=== PATIENT | male | born 1965 | race Caucasian/White ===

== ENCOUNTER → 2017-05-16 | Outpatient (CLI) | payer OTHER ==
[~2017-05-16] MED LIST: AMOX-559 PO; ASPI1TAB35 PO; BUPR-472 PO; CPAP MC; CYCL10TA29 PO; DIA5 PO; DIAZ-308 PO; DULO30CA6 PO; DULO60CA7 PO; EPIN0.3P15 IM; ESCI10TA8 PO; FLUT16SP19 NS; HYDR-385 PO; IBUP800T37 PO; METH4TAB66 PO; NABU-95 PO; OMEP-125 PO; OMEP40CA48 PO; ROSU10TA13 PO; SIMV-49 PO; SIMV-54 PO; TERB250T63 PO; [UNRECOGNIZED DRUG - CODE] MC
--- NOTE | 2017-05-16 17:04 | RADIOLOGY IMAGING REPORT ---
FACILITY: [facility] PATIENT NAME: Noel Mike : 1965 MR: [id number] V: [id number] EXAM DATE: ORDERING PHYSICIAN: ORTIZ FRANK TECHNOLOGIST: Location: [facility] Patient: Noel Mike : 1965 Visit/Account:[id number] Date of Sevice: 05/16/2017 Exam type: WRIST RIGHT MIN 3 VIEW History: Lateral Right wrist pain, no known injury x2 weeks Comparison: None. Findings: Cystic changes are seen in the navicular bone and lunate bone. There is no evidence of acute fractur e involving the right wrist. There are mild degenerative changes involving the first carpometacarpal articulation. No radiopaque soft tissue foreign body seen. No aggressive appearing bone lesions ar e identified. IMPRESSION: 1. Mild degenerative changes involving the first carpometacarpal articulation Cystic changes in the navicular bone and lunate bone Report Dictated By: Santa Mark MD at 05/16/2017 4:57 PM Report E-Signed By: Santa Mark MD at 05/16/2017 4:59 PM WSN:[email or web address]
== END ==
LOC: RAD 16:21
PROVIDERS: ATTEND Nurse Practitioner Primary Care
DX: M19.031 Primary osteoarthritis, right wrist (principal)

== ENCOUNTER → 2017-06-20 | Outpatient (CLI) | payer OTHER ==
--- NOTE | 2017-06-20 17:00 | RADIOLOGY IMAGING REPORT ---
FACILITY: [facility] PATIENT NAME: Noel Mike : 1965 MR: [id number] V: [id number] EXAM DATE: ORDERING PHYSICIAN: KRISTIAN DURAND TECHNOLOGIST: Location: [facility] Patient: Noel Mike : 1965 Visit/Account:[id number] Date of Sevice: 06/20/2017 KNEE RIGHT W/O CONTRAST HISTORY: pain COMPARISON: None TECHNIQUE: Multiplanar/multisequence was obtained through the right knee without contrast. Contrast: None FINDINGS: ACL: Intact with a normal contour through the intracondylar notch. PCL: Normal MCL: Normal LCL: Fibular collateral ligament, biceps femoris tendon and popliteus tendons are intact. Iliotibial band is normal. Medial joint space: Peripheral high signal at the junction of the posterior horn-body the medial meni scus without discrete tear. Mild thinning of the weightbearing portion of the femoral articular carti ronda without defect. Lateral joint space: No lateral meniscal tear. Articular cartilage is normal. Joint effusion: None significant Popliteal cyst: None significant Bone marrow: Normal Quadriceps and patellar tendons: Mild high signal within the medial aspect of the patellar tendon at its origin without significant tear Patellofemoral joint: Mild heterogeneity of the patellar articular cartilage at the apex with mild he terogeneity and fraying of the articular cartilage at the medial patellar facet. Trochlear cartilage is intact. The retinaculum are intact. No patellar subluxation. Soft tissues: Normal Other findings: None significant IMPRESSION: 1. Negative examination for meniscal tear or ligamentous injury. 2. Mild chondral malacia patella. 3. Mild patellar tendinosis. Report Dictated By: Sree Padron MD at 06/20/2017 4:42 PM Report E-Signed By: Sree Padron MD at 06/20/2017 4:56 PM WSN:[email or web address]
--- NOTE | 2017-06-20 17:04 | RADIOLOGY IMAGING REPORT ---
FACILITY: [facility] PATIENT NAME: Noel Mike : 1965 MR: [id number] V: [id number] EXAM DATE: ORDERING PHYSICIAN: KRISTIAN DURAND TECHNOLOGIST: Location: [facility] [place] Patient: Noel Mike : 1965 Visit/Account:[id number] Date of Sevice: 06/20/2017 KNEE LEFT W/O CONTRAST HISTORY: pain COMPARISON: None TECHNIQUE: Multiplanar/multisequence was obtained through the left knee without contrast. Contrast: None FINDINGS: ACL: Intact with a normal contour through the intracondylar notch. PCL: Normal MCL: Normal LCL: Fibular collateral ligament, biceps femoris tendon and popliteus tendons are intact. Iliotibial band is normal. Medial joint space: Mild intrasubstance high signal at the junction of the posterior horn-body withou t discrete tear. Without heterogeneity of the femoral articular cartilage at the weightbearing surfac e without defect. Lateral joint space: No lateral meniscal tear. Articular cartilage is normal. Joint effusion: None significant Popliteal cyst: None significant Bone marrow: Normal Quadriceps and patellar tendons: Normal Patellofemoral joint: Mild heterogeneous high signal with fraying of the patellar articular cartilage at the apex and medial facet. Mild fissuring and irregularity of the central trochlear cartilage. Th e retinaculum are intact. No patellar subluxation. Soft tissues: Normal Other findings: None significant IMPRESSION: 1. Negative for meniscal tear or ligamentous injury. 2. Mild chondromalacia both sides of the patellofemoral joint. Report Dictated By: Sree Padron MD at 06/20/2017 4:57 PM Report E-Signed By: Sree Padron MD at 06/20/2017 5:00 PM WSN:[email or web address]
== END ==
LOC: MRI 01:49
PROVIDERS: ATTEND Nurse Practitioner Family
DX: M76.50 Patellar tendinitis, unspecified knee (principal); M83.9 Adult osteomalacia, unspecified

== ENCOUNTER → 2017-06-20 | Outpatient (CLI) | payer OTHER ==
[2017-06-20 17:44] LABS: PLATELET COUNT, AUTOMATED 249 K/uL (150-450)
[2017-06-20 18:17] LABS: LDL CHOLESTEROL 97 mg/dl
== END ==
LOC: LAB 16:47
PROVIDERS: ATTEND Nurse Practitioner Primary Care
DX: E03.9 Hypothyroidism, unspecified (principal); F41.9 Anxiety disorder, unspecified; R41.840 Attention and concentration deficit; R61 Generalized hyperhidrosis; N64.4 Mastodynia
CPT/HCPCS: 36415; 82040; 82247; 82310; 82374; 82435; 82465; 82565; 82670; 82947; 83002; 83718; 84075; 84132; 84155; 84295; 84403; 84439; 84443; 84450; 84460; 84478; 84480; 84520; 84702; 85025

== ENCOUNTER → 2017-06-24 | Outpatient (CLI) | payer OTHER ==
--- NOTE | 2017-06-24 15:48 | RADIOLOGY IMAGING REPORT ---
[facility] PATIENT NAME: HEATHER KHOURY : [id number] MR: [id number] V: [id number] EXAM DATE: [id number] ORDERING PHYSICIAN: ORTIZ FRANK TECHNOLOGIST: Sue Ruiz PROCEDURE:BILATERAL DIAGNOSTIC DIGITAL MAMMOGRAM WITH CAD ASSISTED INTERPRETATION & 3D TOMOSYNTHESIS COMPARISON:None. INDICATIONS:R breast pain and R retroareolar breast mass FINDINGS: There is prominent fatty replacement throughout the breasts. There is a slight increase density of the breast tissue in the Right retroareolar region relative to the Left. No malignant appearing calcifications are identified in either breast. Today's Right breast Ultrasound did reveal a slight increase in the Right retroareolar breast tissue relative to the Left likely representing unilateral gynecomastia. Clinical follow-up recommended for patient's findings. DIAGNOSTIC CATEGORY 2--BENIGN FINDING. RECOMMENDATIONS: CLINICAL EVALUATION. IMPRESSION: BIRADS 2: Benign finding Patient's findings are likely related to unilateral gynecomastia. Clinical follow-up recommended. Dictated by: Santa Mark M.D. on 06/24/2017 at 15:25 Transcribed by: MARYLIN on 06/24/2017 at 15:45 Approved by: Santa Mark M.D. on 06/24/2017 at 15:47 [facility]
== END ==
LOC: MAMO 03:22
PROVIDERS: ATTEND Nurse Practitioner Primary Care
DX: N62 Hypertrophy of breast (principal)
CPT/HCPCS: 77062; 77066

== ENCOUNTER → 2017-07-01 | Outpatient (CLI) | payer OTHER ==
[~2017-07-01] MED LIST changes: +AMIT-106 PO
== END ==
LOC: LAB 09:13
PROVIDERS: ATTEND Nurse Practitioner Primary Care
DX: N64.4 Mastodynia (principal)
CPT/HCPCS: 36415; 84403

== ENCOUNTER 2017-07-22 11:26 | Emergency (ER) | payer OTHER ==
--- NOTE | 2017-07-22 11:28 | ER Report ---
History and Physical Time Seen By : 11:28 HPI/ROS CHIEF COMPLAINT: Medical fall HISTORY OF PRESENT ILLNESS: 51-year-old male who was performing physical therapy at home doing inverted pull-ups when the string broke and he fell onto his upper back and neck and hit the back of his head. There is no loss of consciousness there is some mild nausea patient is complaining of left shoulder pain and neck pain and upper back pain. REVIEW OF SYSTEMS: Constitutional: No fever, no chills. Eyes: No discharge. ENT: No sore throat. Cardiovascular: No chest pain, no palpitations. Respiratory: No cough, no shortness of breath. Gastrointestinal: No abdominal pain, no vomiting. Genitourinary: No hematuria. Musculoskeletal: Neck and thoracic back pain, left shoulder pain Skin: No rashes. Neurological: No headache. Allergies: Coded Allergies: oxycodone (Unverified Adverse Reaction, Severe, DIZZINESS, 07/22/17) "weird feeling" FEELING THOUGH HE WILL FAINT. Uncoded Allergies: ALLERGY TESTING (Allergy, Severe, ANAPHYLAXIS, 10/02/14) Home Meds Active Scripts Hydrocodone Bit/Acetaminophen (HYDROCODON-ACETAMINOPHEN 5-325) 1 Each Tablet, 1 EACH PO Q4-6H for PAIN, #12 TAB 0 Refills Prov:AUTUMN NEVAREZ MD 07/22/17 Rosuvastatin Calcium (Rosuvastatin Calcium) 10 Mg Tablet, 1 TAB PO QHS, #90 TAB 1 Refill Prov:KRISTIAN DURAND APRN 07/11/17 Amitriptyline Hcl (AMITRIPTYLINE HCL) 25 Mg Tablet, 1 TAB PO QHS, #30 TAB 0 Refills Prov:KRISTIAN DURAND APRN-C 07/05/17 Omeprazole (OMEPRAZOLE) 20 Mg Capsule.dr, 1 TAB PO DAILY, #90 CAP 3 Refills Prov:KRISTIAN DURAND APRN 05/10/17 Cyclobenzaprine Hcl (CYCLOBENZAPRINE HCL) 10 Mg Tablet, 1 TAB PO QHS Y for tension ELL[place], #90 TAB 3 Refills Prov:KRISTIAN DURAND APRN 05/10/17 Epinephrine (EPIPEN 2-AUTUMN) 0.3 Mg/0.3 Ml Pen.injctr, 0.3 MG IM ONCE for anaphylaxis, #1 PACK Prov:KRISTIAN DURAND TALHA LAMAS-C 12/24/16 Cpap (CPAP HOME) Inha, EACH , #1 0 Refills Prov:KRISTIAN DURAND V [employer] DRY CLEANER PRESSER-C 09/14/16 Reported Medications Gabapentin (GABAPENTIN) 300 Mg Capsule, QDAY 07/22/17 Aspirin (ASPIRIN) 81 Mg Tab.chew, 81 MG PO QDAY, TAB.CHEW 07/22/17 Past Medical/Surgical History History of prior "mini strokes" history of left shoulder surgery Hx Smoking: No Smoking Status: Never Smoker Exposure to Second Hand Smoke?: No Hx Alcohol Use: Yes Constitutional Physical Exam General/Constitutional: Patient is awake, alert, nontoxic and in no acute respiratory distress. Head: Normocephalic and atraumatic. Eyes: Conjunctival clear, Pupils are equal and reactive to light. Extraocular muscles are intact and symmetrical. Sclera are clear and anicteric. Sharp discs bilaterally Ears:External canals are clear. Tympanic membranes are clear with normal landmarks and light reflex. Nares: No rhinorrhea or bleeding. Turbinates are pink and moist. Oropharyngeal: Mucous membranes are moist. There is no pharyngeal erythema or exudate. There are no palatal petechiae. Uvula is midline and symmetrical. Neck: Tenderness along bilateral lateral aspects of the cervical spine with no midline tenderness. Cardiovascular: Heart is regular rate and rhythm without audible murmurs, rubs or gallops. Pulmonary: Lungs are clear to auscultation bilaterally. There are no wheezes, rales, or rhonchi. Chest rise is symmetrical Abdomen: Soft, nontender, no guarding or peritoneal signs. Extremities: No gross deformities, left shoulder pain without obvious deformity ; thoracic back pain paraspinal no midline tenderness Neuro: Alert and oriented X3, Cranial nerves 2 thru 12 are intact and symmetrical. Patient has normal gait. Skin: No rashes, skin is warm dry and well perfused. Medical Decision Making EKG/Imaging Imaging FACILITY: PATIENT NAME: Noel Mike : 1965 MR: [id number] V: [id number] EXAM DATE: ORDERING PHYSICIAN: AUTUMN NEVAREZ TECHNOLOGIST: Location: [facility] Patient: Noel Mike : 1965 Visit/Account:[id number] Date of Sevice: 07/22/2017 EXAMINATION: Brain MRI without IV contrast History: History of infarcts COMPARISON STUDIES: none TECHNIQUE: Multi-planar, multi-sequence brain MRI was performed without IV contrast administration. FINDINGS: Paranasal sinuses / mastoid air cells: negative White matter: A few punctate foci of FLAIR signal hyperintensity nonspecific and within range of normal for age. Ventricles / sulci / fissures: negative Masses / hemorrhage / midline shift: negative Extra-axial spaces: negative Calvarium and scalp: negative Vascular structures: negative Sagittal midline structures: negative Orbits: negative Visualized upper neck: negative IMPRESSION: Normal MRI of the brain for the patient's age. No evidence of a mass, acute ischemia or hemorrhage. Report Dictated By: Kenton Heredia MD at 07/22/2017 12:43 PM Report E-Signed By: Kenton Heredia MD at 07/22/2017 12:50 PM WSN:[id number] FACILITY: PATIENT NAME: Noel Mike : 1965 MR: [id number] V: [id number] EXAM DATE: [id number] ORDERING PHYSICIAN: AUTUMN NEVAREZ TECHNOLOGIST: Location: [facility] Patient: Noel Mike : 1965 Visit/Account:[id number] Date of Sevice: 07/22/2017 3 views cervical spine Indication: Pain. Comparison: None available. Findings: The prevertebral soft tissues are within normal limits. The odontoid is unremarkable. The vertebral body heights are well maintained. Mild degenerative disc disease at C4-C5 and C5-C6. Normal lordosis of the cervical spine. IMPRESSION: 1. No acute osseous or acute alignment abnormality of the cervical spine on this examination. Report Dictated By: Joao Mancilla MD at 07/22/2017 1:35 PM Report E-Signed By: Joao Mancilla MD at 07/22/2017 1:36 PM WSN:[email or web address] FACILITY: PATIENT NAME: Noel Mike : 1965 MR: [id number] V: [id number] EXAM DATE: [id number] ORDERING PHYSICIAN: AUTUMN NEVAREZ TECHNOLOGIST: Location: [facility] Patient: Noel Mike : 1965 Visit/Account:[id number] Date of Sevice: 07/22/2017 2 views left shoulder Indication: Fall Comparison: Unavailable Findings: There is no acute fracture-dislocation of the left glenohumeral joint. Limited views of the left upper lung zone are unremarkable. Visualized left acromioclavicular joint is unremarkable. IMPRESSION: 1. No acute osseous abnormality left shoulder. Report Dictated By: Joao Mancilla MD at 07/22/2017 1:32 PM Report E-Signed By: Joao Mancilla MD at 07/22/2017 1:33 PM WSN:[email or web address] FACILITY: PATIENT NAME: Noel Mike : 1965 MR: [id number] V: [id number] EXAM DATE: [id number] ORDERING PHYSICIAN: AUTUMN NEVAREZ TECHNOLOGIST: Location: [facility] Patient: Noel Mike : 1965 Visit/Account:[id number] Date of Sevice: 07/22/2017 3 views thoracic spine INDICATION: Fall COMPARISON: None available FINDINGS: The vertebral body heights and disc spaces are well maintained. There is no acute osseous or acute alignment abnormality. Minimal degenerative changes throughout the thoracic spine. IMPRESSION: 1. No acute osseous or acute alignment abnormality of the thoracic spine. Report Dictated By: Joao Mancilla MD at 07/22/2017 1:31 PM Report E-Signed By: Joao Mancilla MD at 07/22/2017 1:32 PM WSN:[email or web address] ED Course/Re-evaluation ED Course X-ray of cervical spine and left shoulder thoracic spine MRI of the brain all normal. We'll discharge patient home with short course of pain medication. Decision to Disposition Date: Jul 22, 2017 Decision to Disposition Time: 13:58 Depart Departure Latest Vital Signs Impression: Primary Impression: Neck sprain Additional Impressions: Left shoulder pain Back pain Condition: Improved Disposition: HOME OR SELF-CARE Referrals: ORTIZ FRANK DNP, DRY CLEANER PRESSER-BC (PCP) 2 Days if symptoms persist New Scripts Hydrocodone Bit/Acetaminophen (HYDROCODON-ACETAMINOPHEN 5-325) 1 Each Tablet 1 EACH PO Q4-6H for PAIN, #12 TAB 0 Refills Prov: AUTUMN NEVAREZ MD 07/22/17 Patient Instructions: Back Pain (ED), Cervical Sprain (ED), Shoulder Pain (ED) Problem Qualifiers Primary Impression: Neck sprain Encounter type: initial encounter Qualified Codes: S13.9XXA - Sprain of joints and ligaments of unspecified parts of neck, initial encounter Additional Impressions: Left shoulder pain Chronicity: acute Qualified Codes: M25.512 - Pain in left shoulder Back pain Back pain location: thoracic back pain Chronicity: acute Back pain laterality: unspecified Qualified Codes: M54.6 - Pain in thoracic spine AUTUMN NEVAREZ MD Jul 22, 2017 11:28
[2017-07-22] MEDS ORDERED: GABA-549 (11:32)
[2017-07-22] MEDS ORDERED: ASPI81TA94 PO (11:32)
[2017-07-22] MEDS ORDERED: APAP/HYDROCODONE 325/5 TAB PO ONE (11:55)
--- NOTE | 2017-07-22 12:53 | RADIOLOGY IMAGING REPORT ---
FACILITY: [facility] [place] PATIENT NAME: Noel Mike : 1965 MR: [id number] V: [id number] EXAM DATE: ORDERING PHYSICIAN: AUTUMN NEVAREZ TECHNOLOGIST: Location: [facility] Patient: Noel Mike : 1965 Visit/Account:[id number] Date of Sevice: 07/22/2017 EXAMINATION: Brain MRI without IV contrast History: History of infarcts COMPARISON STUDIES: none TECHNIQUE: Multi-planar, multi-sequence brain MRI was performed without IV contrast administration. FINDINGS: Paranasal sinuses / mastoid air cells: negative White matter: A few punctate foci of FLAIR signal hyperintensity nonspecific and within range of norm al for age. Ventricles / sulci / fissures: negative Masses / hemorrhage / midline shift: negative Extra-axial spaces: negative Calvarium and scalp: negative Vascular structures: negative Sagittal midline structures: negative Orbits: negative Visualized upper neck: negative IMPRESSION: Normal MRI of the brain for the patient's age. No evidence of a mass, acute ischemia or hemorrhage. Report Dictated By: Kenton Heredia MD at 07/22/2017 12:43 PM Report E-Signed By: Kenton Heredia MD at 07/22/2017 12:50 PM WSN:[id number]
--- NOTE | 2017-07-22 13:36 | RADIOLOGY IMAGING REPORT ---
FACILITY: [facility] [place] PATIENT NAME: Noel Mike : 1965 MR: [id number] V: [id number] EXAM DATE: ORDERING PHYSICIAN: AUTUMN NEVAREZ TECHNOLOGIST: [place] [facility] [place] Noel [place] : 1965 Visit/Account:[id number] Date of Sevice: 07/22/2017 3 views thoracic spine INDICATION: Fall COMPARISON: None available FINDINGS: The vertebral body heights and disc spaces are well maintained. There is no acute osseous or acute alignment abnormality. Minimal degenerative changes throughout the thoracic spine. IMPRESSION: 1. No acute osseous or acute alignment abnormality of the thoracic spine. Report Dictated By: Joao Mancilla MD at 07/22/2017 1:31 PM Report E-Signed By: Joao Mancilla MD at 07/22/2017 1:32 PM WSN:[email or web address]
--- NOTE | 2017-07-22 13:36 | RADIOLOGY IMAGING REPORT ---
FACILITY: [facility] [place] PATIENT NAME: Noel Mike : 1965 MR: [id number] V: [id number] EXAM DATE: ORDERING PHYSICIAN: AUTUMN NEVAREZ TECHNOLOGIST: Location: [facility] [place] Patient: Noel Mike : 1965 Visit/Account:[id number] Date of Sevice: 07/22/2017 2 views left shoulder Indication: Fall Comparison: Unavailable Findings: There is no acute fracture-dislocation of the left glenohumeral joint. Limited views of the left upper lung zone are unremarkable. Visualized left acromioclavicular joint is unremarkable. IMPRESSION: 1. No acute osseous abnormality left shoulder. Report Dictated By: Joao Mancilla MD at 07/22/2017 1:32 PM Report E-Signed By: Joao Mancilla MD at 07/22/2017 1:33 PM WSN:[email or web address]
--- NOTE | 2017-07-22 13:40 | RADIOLOGY IMAGING REPORT ---
FACILITY: [facility] PATIENT NAME: Noel Mike : 1965 MR: [id number] V: [id number] EXAM DATE: ORDERING PHYSICIAN: AUTUMN NEVAREZ TECHNOLOGIST: Location: [facility] Patient: Noel Mike : 1965 Visit/Account:[id number] Date of Sevice: 07/22/2017 3 views cervical spine Indication: Pain. Comparison: None available. Findings: The prevertebral soft tissues are within normal limits. The odontoid is unremarkable. The vertebral body heights are well maintained. Mild degenerative disc disease at C4-C5 and C5-C6. Normal lordosis of the cervical spine. IMPRESSION: 1. No acute osseous or acute alignment abnormality of the cervical spine on this examination. Report Dictated By: Joao Mancilla MD at 07/22/2017 1:35 PM Report E-Signed By: Joao Mancilla MD at 07/22/2017 1:36 PM WSN:[email or web address]
[2017-07-22] MEDS ORDERED: LOR5/325 PO (14:00)
[2017-07-22 14:19] VITALS: BP 128/80
[2017-08-02] MEDS ORDERED: AMIT-106 PO (16:07)
== END 2017-07-22 14:19 | disposition home or self-care (01) ==
LOC: ER 11:29
DX: S13.9XXA Sprain of joints and ligaments of unspecified parts of neck, initial encounter (principal); M25.512 Pain in left shoulder; M54.6 Pain in thoracic spine
CPT/HCPCS: 70551; 72040; 72072; 99284

== ENCOUNTER 2017-08-28 14:15 | Emergency (ER) | payer OTHER ==
[~2017-08-28 14:15] MED LIST changes: +ASPI81TA94 PO; +GABA-549; +LOR5/325 PO; -ROSU10TA13 PO; +ROSU10TA5 PO
[2017-08-28] MEDS ORDERED: GABA-503 PO (14:31)
[2017-08-28] MEDS ORDERED: OMEG1CAP39 PO (14:31)
--- NOTE | 2017-08-28 14:43 | ER Report ---
History and Physical Time Seen By MD: 14:39 Hx. of Stated Complaint: PT REPORTS PAIN AND SWELLING AND REDNESS IN LLE/DAWKINS/ANKLE ABOUT A WEEK, PAIN WHEN WALKING (AUTUMN NEVAREZ MD) HPI/ROS CHIEF COMPLAINT: Left calf pain and swelling for one week HISTORY OF PRESENT ILLNESS: Patient is a 51-year-old male who reports left- sided calf pain and swelling for approximate 7 days. Patient states prior to that he was on a fairly long car ride across the country. He states that he got out of a gas station and then felt sudden pain in the calf along with a fairly immediate swelling. Patient states the symptoms have been persistent for the past 7 days. He is been trying [id number] pain relief and elevation of the leg. He denies any pain proximal to the knee. Denies any traumatic injury that he remembers. History of known DVTs or PE in the past. Denies any chest pain or shortness of breath REVIEW OF SYSTEMS: Respiratory: No cough, no dyspnea. Cardiovascular: No chest pain, no palpitations. Gastrointestinal: No vomiting, no abdominal pain. Musculoskeletal: No back pain. Left calf pain (AUTUMN NEVAREZ MD) Allergies: Coded Allergies: oxycodone (Unverified Adverse Reaction, Severe, DIZZINESS, 07/22/17) "weird feeling" FEELING THOUGH HE WILL FAINT. Uncoded Allergies: ALLERGY TESTING (Allergy, Severe, ANAPHYLAXIS, 10/02/14) Home Meds Active Scripts Amitriptyline Hcl (AMITRIPTYLINE HCL) 25 Mg Tablet, 1 TAB PO QHS, #90 TAB 0 Refills Prov:KRISTIAN DURAND APRN-C 08/02/17 Rosuvastatin Calcium (Rosuvastatin Calcium) 10 Mg Tablet, 1 TAB PO QHS, #90 TAB 1 Refill Prov:KRISTIAN DURAND APRNP-C 07/11/17 Omeprazole (OMEPRAZOLE) 20 Mg Capsule.dr, 1 TAB PO DAILY, #90 CAP 3 Refills Prov:KRISTIAN DURAND APRN-C 05/10/17 Cyclobenzaprine Hcl (CYCLOBENZAPRINE HCL) 10 Mg Tablet, 1 TAB PO QHS Y for tension [place], #90 TAB 3 Refills Prov:KRISTIAN DURAND APRN-C 4/3/18 Epinephrine (EPIPEN 2-AUTUMN) 0.3 Mg/0.3 Ml Pen.injctr, 0.3 MG IM ONCE for anaphylaxis, #1 PACK Prov:KRISTIAN DURAND TALHA LAMAS-C 12/24/16 Cpap (CPAP HOME) Inha, EACH , #1 0 Refills Prov:KRISTIAN DURAND TALHA AVALOSP-C 09/14/16 Reported Medications [place]-3S/Dha/Epa/Fish Oil/D3 (FISH OIL + D3 SOFTGEL) 1 Each Capsule, 1 EACH PO, CAPSULE 08/28/17 Gabapentin (GABAPENTIN) 600 Mg Tablet, 600 MG PO TID 08/28/17 Aspirin (ASPIRIN) 81 Mg Tab.chew, 81 MG PO QDAY, TAB.CHEW 07/22/17 Discontinued Reported Medications Gabapentin (GABAPENTIN) 300 Mg Capsule, QDAY 07/22/17 Past Medical/Surgical History Past medical history for allergies, gastroesophageal reflux, hypertension patient does wear CPAP at nighttime. (AUTUMN NEVAREZ MD) Hx Smoking: No Smoking Status: Never Smoker Exposure to Second Hand Smoke?: No Hx Substance Use Disorder: No Hx Alcohol Use: Yes (OCC) (AUTMUN NEVAREZ MD) Constitutional Vital Sign - Last 24 Hours 08/28/17 08/28/17 08/28/17 08/28/17 14:15 14:18 14:19 14:30 Temp 97.8 Pulse ??? 86 77 Resp 16 B/P (MAP) 140/93 (109) 140/93 Pulse Ox 95 93 O2 Delivery Room Air 08/28/17 08/28/17 08/28/17 08/28/17 14:45 15:00 15:15 15:30 Pulse 77 74 74 77 B/P (MAP) 143/95 (111) 161/123 (136) Pulse Ox 89 91 91 95 08/28/17 16:00 Pulse 71 B/P (MAP) 169/105 (126) Pulse Ox 92 (LAURORA,VICKY V DO) Physical Exam General Appearance: The patient is alert, has no immediate need for airway protection and no current signs of toxicity. Eyes: Pupils equal and round no injection. Respiratory: Chest is non tender, lungs are clear to auscultation. Cardiac: regular rate and rhythm Gastrointestinal: Abdomen is soft and non tender, no masses, bowel sounds normal. Musculoskeletal: Neck: Neck is supple and non tender. Extremities: Patient has slightly swollen left ankle compared to the right along with pain in palpation along the calf muscle. Patient has an intact Morrow test. Dorsalis pedis and posterior tibialis pulses are intact and symmetrical. And station is intact. Skin: No rashes or lesions. (AUTUMN NEVAREZ MD) Medical Decision Making ED Course/Re-evaluation ED Course 08/28/2017 2:42:45 pm After history and physical exam was performed differential diagnosis was formulated which includes but is not limited to acute DVT, ruptured Herrera's cyst, muscle strain or tear. Plan at this time will be to perform a venous Doppler ultrasound of the left lower extremity. (AUTUMN NEVAREZ MD) ED Course 08/28/2017 3:44:45 pm Pt signed out to me pending NIV study for possible dvt. THe US tech did not see any acute findings. No dvt or bakers cyst identified. Images sent to radiologist 08/28/2017 4:18:33 pm Spoke with pt at length. will reset and elevate leg. If continues with discomfort will obtain outpt MRI for tendon/muscle injury. PTs blood pressure was reading high in ed however the cuff placed on pt was too small. CHanged the cuff size and pts blood pressure was normal 120/83. [facility]. Decision to Disposition Date: Aug 28, 2017 Decision to Disposition Time: 15:45 (VICKY PARKER DO) Depart Departure Latest Vital Signs Vital Signs Date Time Temp Pulse Resp B/P (MAP) Pulse Ox O2 Delivery O2 Flow Rate FiO2 08/28/17 16:00 71 169/105 (126) 92 08/28/17 14:19 97.8 16 Room Air (KEITHMud BayVICKY Sagebin DO) Impression: Primary Impression: Leg pain, left Condition: Condition Unchanged Disposition: HOME OR SELF-CARE Referrals: KRISTIAN DURAND APRNP-C (PCP) 2 Days [facility] PT Departure Forms: ER Transition Record, Medications Reconciliation, Patient Portal Information Patient Instructions: Leg Pain (ED) Additional Instructions: Your imaging today did not show a blood clot in your leg. elevate and rest your leg. You may use ice or heat for comfort. motrin (ibuprofen, advil) 600mg every 8 hours for discomfort If symptoms do not improve with elevation and rest in the next 48 hours then follow up with your family doctor or [facility] (orthopedics) . You may require an MRI to look closer at your ligaments, muscles and tendons. AUTUMN NEVAREZ MD Aug 28, 2017 14:43 VICKY PARKER DO Aug 28, 2017 15:46
--- NOTE | 2017-08-28 16:03 | RADIOLOGY IMAGING REPORT ---
FACILITY: [facility] [place] PATIENT NAME: Noel Mike : 1965 MR: [id number] V: [id number] EXAM DATE: [id number] ORDERING PHYSICIAN: AUTUMN NEVAREZ TECHNOLOGIST: Location: [facility] Patient: Noel Mike : 1965 Visit/Account:[id number] Date of Sevice: 08/28/2017 EXAMINATION: Left LOWER EXTREMITY VENOUS DOPPLER ULTRASOUND DATE: 08/28/2017 3:55 PM CLINICAL INFORMATION: US REASON FOR STUDY: pain, swelling to calf TECHNIQUE: Grayscale, color Doppler, and spectral Doppler ultrasound was performed of the lower extre mity veins to evaluate for deep venous thrombosis. COMPARISON: None FINDINGS: The left common femoral, femoral, and popliteal veins are compressible with normal flow on color Dopp ler imaging. There is also normal Doppler flow of the profunda femoris and greater saphenous veins at the confluence with the common femoral vein. The left posterior tibial and peroneal veins demonstrate normal flow The contralateral right common femoral vein demonstrates normal flow on color Doppler and respiratory variations on spectral Doppler. IMPRESSION: No evidence of deep venous thrombosis in the left lower extremity veins. Report Dictated By: Elise Dc MD at 08/28/2017 3:55 PM Report E-Signed By: Elise Dc MD at 08/28/2017 3:59 PM WSN:[id number]
[2017-08-28 16:19] VITALS: BP 121/83
== END 2017-08-28 16:25 | disposition home or self-care (01) ==
LOC: ER 14:21
DX: M79.662 Pain in left lower leg (principal)
CPT/HCPCS: 99284

== ENCOUNTER → 2017-09-05 | Outpatient (CLI) | payer OTHER ==
[~2017-09-05] MED LIST changes: +FERR-53 PO; +GABA-503 PO; +OMEG1CAP39 PO; +PROT PO; +TOPI-23 PO
[2017-09-05 16:11] LABS: PLATELET COUNT, AUTOMATED 280 K/uL (150-450)
== END ==
LOC: LAB 15:31
PROVIDERS: ATTEND Nurse Practitioner Family
DX: G25.81 Restless legs syndrome (principal)
CPT/HCPCS: 36415; 82728; 83540; 83550; 85025

== ENCOUNTER → 2017-09-15 | Outpatient (CLI) | payer OTHER | LOC: LAB 13:45 | PROVIDERS: ATTEND Nurse Practitioner | DX: C43.21 Malignant melanoma of right ear and external auricular canal (principal) | CPT/HCPCS: 88305; 88344 ==

== ENCOUNTER 2017-10-24 00:47 | Day surgery (SDC) | payer OTHER ==
[~2017-10-24] VITALS: Ht 180.3 cm; Wt 107.0 kg
[~2017-10-24 00:47] MED LIST changes: +CHOL10005 PO
[2017-10-24 07:17] VITALS: BP 127/80
[2017-10-24] MEDS ORDERED: PROPOFOL EMUL(*) 10MG/ML 20 ML 20 ML ONE (07:17)
[2017-10-24] MEDS ORDERED: ONDANSETRON 4 MG/2 ML VIAL ONE (07:17)
[2017-10-24] MEDS ORDERED: DEXAMETHASONE SOD 4 MG/ML VIAL ONE (07:17)
[2017-10-24] MEDS ORDERED: LIDOCAINE MPF 1% 5 ML VIAL ONE (07:17)
[2017-10-24] MEDS ORDERED: fentaNYL CITR 100 MCG/2 ML AMP ONE (07:17)
[2017-10-24] MEDS ORDERED: ceFAZolin(*) 2GM/D5W 50ML 50 ML IVPB ONE ×2 (07:20→16:35)
[2017-10-24] MEDS ORDERED: FAMOTIDINE 20 MG TAB ONE (07:25)
[2017-10-24] MEDS ORDERED: FAMOTIDINE 20 MG TAB PO ONE ×2 (07:30→07:32)
[2017-10-24] MEDS ORDERED: BACITRACIN OINT 15 GM TUBE TP ONE (07:53)
[2017-10-24] MEDS ORDERED: LIDO/EPI 1% MDV 1:100,000 20ML INFIL ONE (08:04)
[2017-10-24] MEDS ORDERED: KETAMINE HCL 200 MG/20 ML MDV ONE (08:05)
[2017-10-24] MEDS ORDERED: MIDAZOLAM 2 MG/2 ML VIAL IVP PRN (08:10)
[2017-10-24] MEDS ORDERED: NORMOSOL R SOLN(*) 1000 ML BAG 1,000 ML IV PRN (08:10)
[2017-10-24] MEDS ORDERED: LIDOCAINE/SOD BICARB 8.4% SYR ID ONE (08:10)
[2017-10-24] MEDS ORDERED: HYDR-4309 PO (09:07)
[2017-10-24] MEDS ORDERED: CEFU500T10 PO (09:09)
[2017-10-24] MEDS ORDERED: APAP/HYDROCODONE 325/7.5 TAB ONE (09:52)
[2017-10-24 10:00] VITALS: BP 115/81
[2017-10-24 10:15] VITALS: BP 118/81
[2017-10-24 10:27] VITALS: BP 117/80
[2017-10-24 10:29] VITALS: BP 108/67
--- NOTE | 2017-10-24 11:15 | OPERATIVE REPORT 1 ---
EVENT DATE: October 24, 2017. SURGEON: Juma Garrett MD ANESTHESIOLOGIST: Kunal Berrios MD ANESTHESIA: LMA PREOPERATIVE DIAGNOSIS Right conchal ear melanoma. POSTOPERATIVE DIAGNOSIS Right conchal ear melanoma. PROCEDURE PERFORMED 1. Excision of right conchal ear melanoma. 2. Reconstruction with island transposition flap. INDICATIONS Please refer to the preoperative note. DESCRIPTION OF PROCEDURE The patient was positively identified in the preoperative area. He was accompanied there by his . Risks again explained including, but not limited to, bleeding, infection, positive margins, flap failure and those associated with anesthesia. He acknowledged understanding of those risks. He was then brought back to the operative suite, laid supine on the operating table and anesthesia was administered. Once asleep, the patient was positioned, prepped and draped in the usual sterile fashion. An incision was planned with approximately 1 cm margins in the right niesha ball. A postauricular flap was designed measuring approximately a 2 x 3 cm. Approximately 4 cc of 1% Lidocaine with Epinephrine was infiltrated into both sites. I began with the excision of the melanoma. The aforementioned incision was made with a 15 blade. I took the underlying ear cartilage as a deep margin. This was marked and sent for permanent pathology. The flap was then mobilized and advanced into the conchal defect and secured to the surrounding tissue with interrupted nylon suture. The postauricular incision was closed with interrupted nylon suture. The patient was then returned to anesthesia for emergence. ESTIMATED BLOOD LOSS 25 cc. COMPLICATIONS None. MTDD
== END 2017-10-24 10:00 | disposition home or self-care (01) ==
LOC: OR 00:47
PROVIDERS: ATTEND Otolaryngology
DX: C43.21 Malignant melanoma of right ear and external auricular canal (principal)
CPT/HCPCS: 11641; 36415; 88305; 88344; J1100; J2001; J2250; J2405; J2704; J3010; J3490; 82310; 82374; 82435; 82565; 82947; 84132; 84295; 84520; J0690

== ENCOUNTER → 2017-11-07 | Outpatient (CLI) | payer OTHER ==
[~2017-11-07] MED LIST changes: +CEFU500T10 PO; +HYDR-4309 PO
== END ==
LOC: LAB 14:00
PROVIDERS: ATTEND Otolaryngology
DX: C44.41 Basal cell carcinoma of skin of scalp and neck (principal)
CPT/HCPCS: 88305

== ENCOUNTER → 2017-12-02 | Outpatient (CLI) | payer OTHER ==
[~2017-12-02] MED LIST changes: -HYDR-4309 PO; +HYDR-653 PO; +TOPI-120 PO
== END ==
LOC: LAB 10:45
PROVIDERS: ATTEND Nurse Practitioner Family
DX: E03.9 Hypothyroidism, unspecified (principal)
CPT/HCPCS: 36415; 84443

== ENCOUNTER → 2018-03-03 | Outpatient (CLI) | payer OTHER ==
[~2018-03-03] MED LIST changes: -GABA-503 PO; +GABA-533 PO; +LORA-629 PO; +NIAC500T84 PO
[2018-03-03 07:45] LABS: LDL CHOLESTEROL 77 mg/dl
== END ==
LOC: LAB 07:12
PROVIDERS: ATTEND Nurse Practitioner Family
DX: E78.5 Hyperlipidemia, unspecified (principal); R94.5 Abnormal results of liver function studies; R94.6 Abnormal results of thyroid function studies; G25.81 Restless legs syndrome; R79.0 Abnormal level of blood mineral
CPT/HCPCS: 36415; 82040; 82247; 82310; 82374; 82435; 82465; 82565; 82728; 82947; 83540; 83550; 83718; 84075; 84132; 84153; 84155; 84295; 84443; 84450; 84460; 84478; 84520

== ENCOUNTER → 2018-03-10 | Outpatient (CLI) | payer OTHER ==
--- NOTE | 2018-03-10 09:23 | RADIOLOGY IMAGING REPORT ---
[place] [facility] [place]IENT NAME: Noel Mike : 1965 MR: [id number] V: [id number] EXAM DATE: ORDERING PHYSICIAN: KRISTIAN DURAND TECHNOLOGIST: Location: [facility] [place] Patient: Noel Mike : 1965 Visit/Account:[id number] Date of Sevice: 03/10/2018 LIVER HISTORY: Elevated liver enzymes COMPARISON: None. FINDINGS: Gallbladder: Unremarkable; no stones or sludge. Liver: There is increased echogenicity throughout liver which can be seen with fatty infiltration oth er infiltrative process. There are several areas of focal fatty sparing adjacent to the gallbladder Common duct: Normal, 2.9 mm diameter. Pancreas: Partially obscured by bowel, visualized aspects unremarkable. Right kidney: Right kidney appears unremarkable measuring 10.5 cm in length Upper abdominal aorta and IVC: Patent. Ascites: None visualized. IMPRESSION: Increased echogenicity throughout liver which can be seen with fatty infiltration other infiltrative process Report Dictated By: Santa Mark MD at 03/10/2018 9:17 AM Report E-Signed By: Santa Mark MD at 03/10/2018 9:18 AM WSN:[id number]
== END ==
LOC: US 01:09
PROVIDERS: ATTEND Nurse Practitioner Family
DX: K76.0 Fatty (change of) liver, not elsewhere classified (principal)
CPT/HCPCS: 76705

== ENCOUNTER → 2018-09-01 | Outpatient (CLI) | payer OTHER ==
[~2018-09-01] MED LIST changes: +ATOR20TA65 PO; -OMEP-125 PO; +OMEP-126 PO
== END ==
LOC: LAB 07:15
PROVIDERS: ATTEND Nurse Practitioner Family
DX: G25.81 Restless legs syndrome (principal); R74.8 Abnormal levels of other serum enzymes; E03.9 Hypothyroidism, unspecified; E78.5 Hyperlipidemia, unspecified
CPT/HCPCS: 36415; 82040; 82247; 82310; 82374; 82435; 82565; 82728; 82947; 83540; 83550; 84075; 84132; 84155; 84295; 84450; 84460; 84520